=== PATIENT | male | born 1955 | race Caucasian/White ===

== ENCOUNTER 2018-02-26 14:22 | Inpatient (IN) | payer MEDICAID ==
[~2018-02-26] VITALS: Ht 182.9 cm; Wt 102.3 kg
[2018-02-26] VITALS (10 sets, daily range): BP systolic 103–155; BP diastolic 62–78
[~2018-02-26 14:22] MED LIST: ALBU8.5H8 IH; CEPH-571 PO; HYDR12.55 PO; LANTUS SQ; LEVA15HF4 INH; LISI40TA4 PO; METF500T PO
[2018-02-26] MEDS ORDERED: HYDROmorphone 1 mg/ml syringe IV ONE ×3 (14:35→16:05)
[2018-02-26] MEDS ORDERED: OMEP40CA37 PO (14:47)
[2018-02-26] MEDS ORDERED: HYDROmorphone 1 mg/ml syringe IM ONE (15:15)
[2018-02-26] MEDS ORDERED: levoFLOXACIN-Levaquin 750MG/D5 150 ML IV STA (16:22)
[2018-02-26] MEDS ORDERED: clindamycin-Cleocin 900mg/D5W 50 ML IV ONE (16:25)
[2018-02-26] MEDS ORDERED: normal saline 1000ml 1,000 ML IV ONE (16:45)
[2018-02-26] MEDS ORDERED: LORazepam 2 mg/ml vial IV ONE ×2 (17:00→19:55)
[2018-02-26] MEDS ORDERED: rabies immune globulin/PF 150 unit/ml inj IMVAC STA (17:39)
[2018-02-26] MEDS ORDERED: haloperidol 5mg tablet PO PRN ×2 (17:40)
[2018-02-26] MEDS ORDERED: dextrose 50%-water 50ml dispensing syringe IV PRN ×3 (17:40)
[2018-02-26] MEDS ORDERED: LORazepam 2 mg/ml vial IV PRN ×2 (17:40)
[2018-02-26] MEDS ORDERED: mag hydrox/Alum hydrox/simeth 30ml oral suspension PO PRN (17:40)
[2018-02-26] MEDS ORDERED: ipratropium/albuterol 3ml nebule NEB PRN (17:40)
[2018-02-26] MEDS ORDERED: rabies vaccine (PCEC)/PF 2.5 unit kit IMVAC ONE (17:40)
[2018-02-26] MEDS ORDERED: potassium Cl 40MEQ/NS 500ml 500 ML IV PRN ×2 (17:40)
[2018-02-26] MEDS ORDERED: thiamine inj. 100 MG in normal saline 100ml IV soln 100 ML IV ONE (17:40)
[2018-02-26] MEDS ORDERED: magnesium hydroxide 30ml (MOM) UD suspension PO PRN (17:40)
[2018-02-26] MEDS ORDERED: ondansetron/PF 4mg/2ml inj IV PRN ×3 (17:40→21:30)
[2018-02-26] MEDS ORDERED: haloperidol lactate 5mg/ml inj IM PRN ×2 (17:40)
[2018-02-26] MEDS ORDERED: magnesium 4gm in 100ml NS 100 ML IV PRN (17:40)
[2018-02-26] MEDS ORDERED: insulin Lispro (HumaLOG) vial - multi-dose SQ SCH (17:40)
[2018-02-26] MEDS ORDERED: dextrose ORAL solution 15 GM/59 ML bottle PO PRN ×2 (17:40)
[2018-02-26] MEDS ORDERED: magnesium 1gm/100ml D5W IVPB 50 ML IV PRN (17:40)
[2018-02-26] MEDS ORDERED: acetaminophen 325mg tablet PO PRN (17:40)
[2018-02-26] MEDS ORDERED: glucagon, human recombinant 1mg kit SUBCUT PRN (17:40)
[2018-02-26] MEDS ORDERED: thiamine 100mg/ml 2ml inj. IV ONE (17:40)
[2018-02-26] MEDS ORDERED: diphenhydrAMINE 50 mg/ml inj IV PRN (17:40)
[2018-02-26] MEDS ORDERED: MESSAGE TO PHARMACY PO ONE (17:40)
[2018-02-26] MEDS ORDERED: morphine 4 MG/ML inj SYRINge IV PRN ×4 (17:40→19:15)
[2018-02-26] MEDS ORDERED: potassium Cl 20 mEq SR tablet PO PRN ×2 (17:40)
[2018-02-26 17:52] LABS: INR 1.2 INR
[2018-02-26] MEDS: normal saline 1000ml 1,000 ML IV SCH (18:17)
[2018-02-26 18:19] LABS: BASOPHILS % (AUTO) 0.3 % (0-1); EOSINOPHILS # (AUTO) 0.6 X10'3 (0-0.9); EOSINOPHILS % (AUTO) 8.4 % (0-6); HEMATOCRIT 37.8 % (42.0-52.0); HEMOGLOBIN 13.2 g/dl (14.0-17.9); LYMPHOCYTES # (AUTO) 2.1 X10'3 (1.1-4.8); LYMPHOCYTES % (AUTO) 28.1 % (21-51); MEAN CORPUSCULAR HEMOGLOBIN 31.2 PG (27.0-31.0); MEAN CORPUSCULAR HGB CONC 34.9 % (33.0-36.5); MEAN CORPUSCULAR VOLUME 89.3 FL (78-98); MEAN PLATELET VOLUME 8.2 FL (7.4-10.4); MONOCYTES # (AUTO) 0.9 X10'3 (0-0.9); NEUTROPHILS # (AUTO) 3.8 X10'3 (1.8-7.7); NEUTROPHILS % (AUTO) 51.2 % (42-75); PLATELET COUNT 208 X10'3 (140-440); RED BLOOD COUNT 4.24 X10'6 (4.70-6.10); RED CELL DISTRIBUTION WIDTH 13.9 % (11.5-14.5); WHITE BLOOD COUNT 7.4 X10'3 (4.5-11.0)
[2018-02-26 18:34] LABS: ALANINE AMINOTRANSFERASE 37 U/L (12-78); ALBUMIN 3.1 G/DL (3.4-5.0); ALBUMIN/GLOBULIN RATIO 0.8 (1.1-1.5); ALKALINE PHOSPHATASE 79 IU/L (46-116); ANION GAP 5 (8-16); ASPARTATE AMINO TRANSFERASE 27 U/L (10-37); BILIRUBIN,TOTAL 0.7 MG/DL (0.1-1.0); BLOOD UREA NITROGEN 16 MG/DL (7-18); BUN/CREATININE RATIO 18.4 (5.4-32.0); CALCIUM 8.6 MG/DL (8.5-10.1); CHLORIDE 107 MMOL/L (99-107); CREATININE 0.87 MG/DL (0.60-1.10); GLUCOSE 103 MG/DL (70-104); POTASSIUM 3.7 MMOL/L (3.5-5.1); SODIUM 139 MMOL/L (135-145); TOTAL CARBON DIOXIDE 27.3 MMOL/L (24-32); TOTAL PROTEIN 6.8 G/DL (6.4-8.2); eGFR 89 ML/MIN
[2018-02-26 19:05] LABS: URINE AMPHETAMINE SCREEN POSITIVE (Neg); URINE BARBITUATE SCREEN NEGATIVE (Neg); URINE BENZODIAZEPINES SCREEN NEGATIVE (Neg); URINE CANNABINOID SCREEN POSITIVE (Neg); URINE COCAINE SCREEN NEGATIVE (Neg); URINE METHADONE SCREEN NEGATIVE (Neg); URINE OPIATE SCREEN POSITIVE (Neg); URINE PHENCYCLIDINE SCREEN NEGATIVE (Neg)
[2018-02-26] MEDS ORDERED: ringers solution, lacted 1,000 ML IV SCH (19:14)
[2018-02-26] MEDS ORDERED: meperidine/PF 25mg/ml syringe IV PRN ×3 (19:15)
[2018-02-26] MEDS ORDERED: proCHLORperazine 10 MG/2 ml inj IV PRN (19:15)
[2018-02-26] MEDS: cefepime 2g/NS 100ml ADVANTAGE 100 ML IV SCH (20:00)
[2018-02-26] MEDS ORDERED: fentaNYL /PF 50mcg/ml 5ml ampule ONE (20:36)
[2018-02-26] MEDS ORDERED: midazolam 2 mg/2 ml injection ONE (20:36)
[2018-02-26] MEDS ORDERED: sevoflurane 250ml liquid IH ONE (20:37)
[2018-02-26] MEDS ORDERED: LIDOcaine 2% (20mg/ml) 5ml vial ONE (20:42)
[2018-02-26] MEDS ORDERED: propofol inj 20 ML IV ONE (20:42)
[2018-02-26] MEDS: insulin glargine (Lantus) pen - multi-dose SQ SCH (21:00)
[2018-02-26] MEDS ORDERED: sugammadex 200mg/2ml injection IV ONE (21:20)
[2018-02-26] MEDS ORDERED: HYDROcodone/acetaminophen 10/325mg tab PO PRN (21:30)
[2018-02-26] MEDS ORDERED: flumazenil 0.1 mg/ml inj. IV ONE (21:42)
[2018-02-26] MEDS: heparin, porcine 5000 units/ml vial SQ SCH (23:40)
[2018-02-27] VITALS (8 sets, daily range): BP systolic 124–144; BP diastolic 62–84
[2018-02-27] MEDS: normal saline 1000ml 1,000 ML IV SCH ×2 (03:14→13:40)
[2018-02-27 05:15] LABS: BASOPHILS % (AUTO) 0.5 % (0-1); EOSINOPHILS # (AUTO) 0.5 X10'3 (0-0.9); EOSINOPHILS % (AUTO) 6.4 % (0-6); HEMATOCRIT 36.5 % (42.0-52.0); HEMOGLOBIN 12.4 g/dl (14.0-17.9); LYMPHOCYTES # (AUTO) 1.5 X10'3 (1.1-4.8); LYMPHOCYTES % (AUTO) 19.1 % (21-51); MEAN CORPUSCULAR HEMOGLOBIN 30.7 PG (27.0-31.0); MEAN CORPUSCULAR HGB CONC 34.1 % (33.0-36.5); MEAN PLATELET VOLUME 8.5 FL (7.4-10.4); MONOCYTES % (AUTO) 12.3 % (2-12); NEUTROPHILS % (AUTO) 61.7 % (42-75); PLATELET COUNT 209 X10'3 (140-440); RED BLOOD COUNT 4.05 X10'6 (4.70-6.10); RED CELL DISTRIBUTION WIDTH 14.2 % (11.5-14.5)
[2018-02-27 05:38] LABS: ALANINE AMINOTRANSFERASE 29 U/L (12-78); ALBUMIN 2.7 G/DL (3.4-5.0); ALBUMIN/GLOBULIN RATIO 0.8 (1.1-1.5); ALKALINE PHOSPHATASE 78 IU/L (46-116); ANION GAP 7 (8-16); ASPARTATE AMINO TRANSFERASE 21 U/L (10-37); BILIRUBIN,TOTAL 0.7 MG/DL (0.1-1.0); BLOOD UREA NITROGEN 12 MG/DL (7-18); BUN/CREATININE RATIO 14.3 (5.4-32.0); CALCIUM 7.9 MG/DL (8.5-10.1); CHLORIDE 105 MMOL/L (99-107); CHOL/HDL RATIO 2.5 (0.00-4.99); CHOLESTEROL 98 MG/DL (0-200); CREATININE 0.84 MG/DL (0.60-1.10); GLUCOSE 100 MG/DL (70-104); HDL CHOLESTEROL 40 MG/DL (35-60); LDL CHOLESTEROL 51 MG/DL (50-100); MAGNESIUM 1.6 MG/DL (1.5-2.4); POTASSIUM 3.7 MMOL/L (3.5-5.1); SODIUM 139 MMOL/L (135-145); TOTAL CARBON DIOXIDE 27.1 MMOL/L (24-32); TOTAL PROTEIN 6.1 G/DL (6.4-8.2); TRIGLYCERIDES 54 MG/DL (20-135); eGFR > 90 ML/MIN
[2018-02-27] MEDS: nicotine 21mg patch - 24 hr TD SCH (08:00)
[2018-02-27] MEDS ORDERED: folic acid inj. 2 MG, thiamine inj. 100 MG, MVI, adult No.4 with vit. K 10 ML in dextro... IV SCH ×4 (08:00)
[2018-02-27] MEDS: K and/or MAG REPLACEMENT MC SCH (08:00)
[2018-02-27] MEDS: lisinopril 10 MG tablet PO SCH (08:08)
[2018-02-27] MEDS: cefepime 2g/NS 100ml ADVANTAGE 100 ML IV SCH (08:08)
[2018-02-27] MEDS: heparin, porcine 5000 units/ml vial SQ SCH ×2 (08:22→16:00)
[2018-02-27] MEDS: metroNIDAZOLE 500mg tablet PO SCH ×2 (16:00→16:08)
[2018-02-27] MEDS: levoFLOXACIN 750MG TABLET PO SCH (16:08)
[2018-02-27] MEDS: insulin glargine (Lantus) pen - multi-dose SQ SCH (21:00)
[2018-02-28] VITALS: BP 128/72
[2018-02-28] MEDS: metroNIDAZOLE 500mg tablet PO SCH ×2 (00:11→07:56)
[2018-02-28 05:28] LABS: ALANINE AMINOTRANSFERASE 31 U/L (12-78); ALBUMIN 2.8 G/DL (3.4-5.0); ALBUMIN/GLOBULIN RATIO 0.8 (1.1-1.5); ALKALINE PHOSPHATASE 87 IU/L (46-116); ANION GAP 6 (8-16); ASPARTATE AMINO TRANSFERASE 25 U/L (10-37); BILIRUBIN,TOTAL 0.6 MG/DL (0.1-1.0); BLOOD UREA NITROGEN 12 MG/DL (7-18); BUN/CREATININE RATIO 12.4 (5.4-32.0); CALCIUM 8.2 MG/DL (8.5-10.1); CHLORIDE 105 MMOL/L (99-107); CREATININE 0.97 MG/DL (0.60-1.10); GLUCOSE 111 MG/DL (70-104); MAGNESIUM 1.9 MG/DL (1.5-2.4); PHOSPHORUS 2.9 MG/DL (2.3-4.5); SODIUM 138 MMOL/L (135-145); TOTAL CARBON DIOXIDE 27.1 MMOL/L (24-32); TOTAL PROTEIN 6.5 G/DL (6.4-8.2); eGFR 78 ML/MIN
[2018-02-28 05:43] LABS: HEMATOCRIT 38.5 % (42.0-52.0); HEMOGLOBIN 13.3 g/dl (14.0-17.9); MEAN CORPUSCULAR HEMOGLOBIN 31.1 PG (27.0-31.0); MEAN CORPUSCULAR HGB CONC 34.6 % (33.0-36.5); MEAN CORPUSCULAR VOLUME 89.7 FL (78-98); MEAN PLATELET VOLUME 8.9 FL (7.4-10.4); PLATELET COUNT 205 X10'3 (140-440); RED BLOOD COUNT 4.29 X10'6 (4.70-6.10); RED CELL DISTRIBUTION WIDTH 13.8 % (11.5-14.5); WHITE BLOOD COUNT 8.5 X10'3 (4.5-11.0)
[2018-02-28 06:08] LABS: TOTAL CELLS COUNTED 100
[2018-02-28 06:09] LABS: PLATELET ESTIMATE NORMAL
[2018-02-28 07:00] VITALS: BP 142/76
[2018-02-28] MEDS: lisinopril 10 MG tablet PO SCH (07:55)
[2018-02-28] MEDS: nicotine 21mg patch - 24 hr TD SCH (07:57)
[2018-02-28] MEDS: heparin, porcine 5000 units/ml vial SQ SCH ×2 (07:57)
[2018-02-28] MEDS ORDERED: folic acid 1mg tablet PO SCH (08:00)
[2018-02-28] MEDS: K and/or MAG REPLACEMENT MC SCH (08:00)
[2018-02-28] MEDS ORDERED: thiamine 100mg tablet PO SCH (08:00)
[2018-02-28] MEDS ORDERED: multivitamins, therapeutics tablet PO SCH (08:00)
[2018-02-28] MEDS ORDERED: LEVO750T46 PO (09:58)
[2018-02-28] MEDS ORDERED: METR500T4 PO (09:58)
[2018-02-28] MEDS ORDERED: HYDR-3972 PO (10:17)
[2018-02-28 11:00] VITALS: BP 123/70
[2018-02-28] MEDS: levoFLOXACIN 750MG TABLET PO SCH (12:15)
[2018-02-28] MEDS ORDERED: LORazepam 1 MG tablet PO PRN ×2 (17:40)
[2018-02-28] MEDS ORDERED: LORazepam 2 mg/ml vial IV PRN ×2 (17:40)
[2018-02-28] MEDS ORDERED: lactobacillus rhamnosus 10,000 MMU CELLS/CAPSULE PO SCH (20:00)
[2018-03-02] MEDS ORDERED: LORazepam 1 MG tablet PO PRN ×2 (17:40)
[2018-03-02] MEDS ORDERED: LORazepam 2 mg/ml vial IV PRN ×2 (17:40)
== END 2018-02-28 13:35 | disposition home health service (06) | DRG 364 ==
LOC: ER 14:22 → ED HOLD 17:40 → EDBEDREQ 19:20 → SUR 3N 22:45
PROVIDERS: ADMIT Family Medicine; ATTEND Internal Medicine
PROC: 0JDN0ZZ Extraction of Right Lower Leg Subcutaneous Tissue and Fascia, Open Approach (ICD-10-PCS; principal; 2018-02-26 20:37)
DX: S81.851A Open bite, right lower leg, initial encounter (principal); I10 Essential (primary) hypertension; L03.116 Cellulitis of left lower limb; E11.9 Type 2 diabetes mellitus without complications; F12.90 Cannabis use, unspecified, uncomplicated; G47.33 Obstructive sleep apnea (adult) (pediatric); E66.9 Obesity, unspecified; J44.9 Chronic obstructive pulmonary disease, unspecified; K21.9 Gastro-esophageal reflux disease without esophagitis; F17.210 Nicotine dependence, cigarettes, uncomplicated; W54.0XXA Bitten by dog, initial encounter; Z79.4 Long term (current) use of insulin; Z79.899 Other long term (current) drug therapy; Z82.49 Family history of ischemic heart disease and other diseases of the circulatory system; Z23 Encounter for immunization; Z68.30 Body mass index [BMI] 30.0-30.9, adult; Y93.89 Activity, other specified; Y92.89 Other specified places as the place of occurrence of the external cause; Y99.8 Other external cause status; Z88.0 Allergy status to penicillin; Z88.5 Allergy status to narcotic agent; Z91.19 Patient's noncompliance with other medical treatment and regimen
CPT/HCPCS: 36415; 73590; 73700; 80053; 80061; 80305; 82948; 83036; 83735; 84100; 85025; 85610; 86885; 86900; 86901; 87070; 90375; 90675; 94760; 96365; 96372; 96375; 96376; 99285; A4353; A4649; A6212; A6446; A6449; A7000; C9399; J0692; J1170; J1644; J1815; J1956; J2001; J2060; J2175; J2250; J2270; J2704; J3010; J3411; J3490; J7030; J7060; J7120

== ENCOUNTER 2018-03-20 09:00 | Outpatient (CLI) | payer MEDICAID ==
[~2018-03-20 09:00] MED LIST changes: -ALBU8.5H8 IH; -CEPH-571 PO; +HYDR-3972 PO; -HYDR12.55 PO; -LANTUS SQ; -LEVA15HF4 INH; +LEVO750T46 PO; -METF500T PO; +METR500T4 PO; +OMEP40CA37 PO
[2018-03-20] MEDS ORDERED: LIDOcaine 2% 5ml jelly ONE (10:16)
== END 2018-03-20 11:16 | disposition home or self-care (01) ==
LOC: EDSTATUS 09:00 → WOUND CARE 09:00
PROVIDERS: ATTEND Surgery
DX: T81.89XD Other complications of procedures, not elsewhere classified, subsequent encounter (principal); E11.622 Type 2 diabetes mellitus with other skin ulcer; L97.212 Non-pressure chronic ulcer of right calf with fat layer exposed; J44.9 Chronic obstructive pulmonary disease, unspecified; I10 Essential (primary) hypertension; K21.9 Gastro-esophageal reflux disease without esophagitis; E66.9 Obesity, unspecified; G47.33 Obstructive sleep apnea (adult) (pediatric); F12.90 Cannabis use, unspecified, uncomplicated; F17.210 Nicotine dependence, cigarettes, uncomplicated; Z68.30 Body mass index [BMI] 30.0-30.9, adult; Z79.4 Long term (current) use of insulin; Z79.899 Other long term (current) drug therapy; Z79.84 Long term (current) use of oral hypoglycemic drugs; Y83.8 Other surgical procedures as the cause of abnormal reaction of the patient, or of later complication, without mention of misadventure at the time of the procedure
CPT/HCPCS: 97605

== ENCOUNTER 2018-03-29 10:02 | Day surgery (SDC) | payer MEDICAID ==
[~2018-03-29 10:02] MED LIST changes: -LEVO750T46 PO; -METR500T4 PO
[2018-03-29] MEDS ORDERED: LIDOcaine 2% 5ml jelly ONE (11:15)
== END 2018-03-29 12:19 | disposition home or self-care (01) ==
LOC: WOUND CARE 10:02
PROVIDERS: ATTEND Surgery
DX: T81.89XD Other complications of procedures, not elsewhere classified, subsequent encounter (principal); E11.622 Type 2 diabetes mellitus with other skin ulcer; L97.212 Non-pressure chronic ulcer of right calf with fat layer exposed; J44.9 Chronic obstructive pulmonary disease, unspecified; I10 Essential (primary) hypertension; K21.9 Gastro-esophageal reflux disease without esophagitis; E66.9 Obesity, unspecified; G47.33 Obstructive sleep apnea (adult) (pediatric); F12.90 Cannabis use, unspecified, uncomplicated; F17.210 Nicotine dependence, cigarettes, uncomplicated; Z68.30 Body mass index [BMI] 30.0-30.9, adult; Z79.4 Long term (current) use of insulin; Z79.899 Other long term (current) drug therapy; Z79.84 Long term (current) use of oral hypoglycemic drugs; Y83.8 Other surgical procedures as the cause of abnormal reaction of the patient, or of later complication, without mention of misadventure at the time of the procedure
CPT/HCPCS: 15271; 15272; A6223; Q4131; A4456

== ENCOUNTER 2018-04-05 09:17 | Day surgery (SDC) | payer MEDICAID ==
[2018-04-05] MEDS ORDERED: LIDOcaine 2% 5ml jelly ONE (09:55)
== END 2018-04-05 11:30 | disposition home or self-care (01) ==
LOC: WOUND CARE 09:17
PROVIDERS: ATTEND Surgery
DX: E11.40 Type 2 diabetes mellitus with diabetic neuropathy, unspecified (principal); L97.514 Non-pressure chronic ulcer of other part of right foot with necrosis of bone; E11.621 Type 2 diabetes mellitus with foot ulcer; E11.65 Type 2 diabetes mellitus with hyperglycemia
CPT/HCPCS: 15271; A6222; Q4131; A6250

== ENCOUNTER 2018-04-09 09:56 | Outpatient (CLI) | payer MEDICAID | END 2018-04-09 11:31 | disposition home or self-care (01) | LOC: WOUND CARE 09:56 → EDSTATUS 10:00 → WOUND CARE 11:31 | PROVIDERS: ATTEND Surgery | DX: T81.89XD Other complications of procedures, not elsewhere classified, subsequent encounter (principal); E11.622 Type 2 diabetes mellitus with other skin ulcer; L97.212 Non-pressure chronic ulcer of right calf with fat layer exposed; E11.65 Type 2 diabetes mellitus with hyperglycemia; E11.40 Type 2 diabetes mellitus with diabetic neuropathy, unspecified; J44.9 Chronic obstructive pulmonary disease, unspecified; I10 Essential (primary) hypertension; K21.9 Gastro-esophageal reflux disease without esophagitis; E66.9 Obesity, unspecified; G47.33 Obstructive sleep apnea (adult) (pediatric); F12.90 Cannabis use, unspecified, uncomplicated; Z68.30 Body mass index [BMI] 30.0-30.9, adult; Z79.4 Long term (current) use of insulin; Z79.899 Other long term (current) drug therapy; Z79.84 Long term (current) use of oral hypoglycemic drugs; Y83.8 Other surgical procedures as the cause of abnormal reaction of the patient, or of later complication, without mention of misadventure at the time of the procedure | CPT/HCPCS: 97605; A6222 ==

== ENCOUNTER 2018-04-13 10:14 | Day surgery (SDC) | payer MEDICAID ==
[2018-04-13] MEDS ORDERED: LIDOcaine/PRILOcaine 5gm cream TP ONE (11:30)
== END 2018-04-13 12:10 | disposition home or self-care (01) ==
LOC: WOUND CARE 10:14
PROVIDERS: ATTEND Surgery
DX: T81.89XD Other complications of procedures, not elsewhere classified, subsequent encounter (principal); E11.622 Type 2 diabetes mellitus with other skin ulcer; L97.212 Non-pressure chronic ulcer of right calf with fat layer exposed; J44.9 Chronic obstructive pulmonary disease, unspecified; I10 Essential (primary) hypertension; K21.9 Gastro-esophageal reflux disease without esophagitis; E66.9 Obesity, unspecified; G47.33 Obstructive sleep apnea (adult) (pediatric); F12.90 Cannabis use, unspecified, uncomplicated; F17.210 Nicotine dependence, cigarettes, uncomplicated; Z68.30 Body mass index [BMI] 30.0-30.9, adult; Z79.4 Long term (current) use of insulin; Z79.899 Other long term (current) drug therapy; Z79.84 Long term (current) use of oral hypoglycemic drugs; Y83.8 Other surgical procedures as the cause of abnormal reaction of the patient, or of later complication, without mention of misadventure at the time of the procedure
CPT/HCPCS: 15271; Q4131

== ENCOUNTER 2018-04-19 09:56 | Day surgery (SDC) | payer MEDICAID ==
[2018-04-19] MEDS ORDERED: LIDOcaine/PRILOcaine 5gm cream TP ONE (11:21)
== END 2018-04-19 11:56 | disposition home or self-care (01) ==
LOC: WOUND CARE 09:56
PROVIDERS: ATTEND Surgery
DX: T81.89XD Other complications of procedures, not elsewhere classified, subsequent encounter (principal); E11.622 Type 2 diabetes mellitus with other skin ulcer; L97.212 Non-pressure chronic ulcer of right calf with fat layer exposed; J44.9 Chronic obstructive pulmonary disease, unspecified; I10 Essential (primary) hypertension; K21.9 Gastro-esophageal reflux disease without esophagitis; E66.9 Obesity, unspecified; G47.33 Obstructive sleep apnea (adult) (pediatric); F12.90 Cannabis use, unspecified, uncomplicated; F17.210 Nicotine dependence, cigarettes, uncomplicated; Z68.30 Body mass index [BMI] 30.0-30.9, adult; Z79.4 Long term (current) use of insulin; Z79.899 Other long term (current) drug therapy; Z79.84 Long term (current) use of oral hypoglycemic drugs; Y83.8 Other surgical procedures as the cause of abnormal reaction of the patient, or of later complication, without mention of misadventure at the time of the procedure
CPT/HCPCS: 15271; A6196; A6222; A6446; Q4131; A6250

== ENCOUNTER 2018-05-03 10:09 | Day surgery (SDC) | payer MEDICAID ==
[2018-05-03] MEDS ORDERED: LIDOcaine/PRILOcaine 5gm cream TP ONE (11:50)
== END 2018-05-03 12:24 | disposition home or self-care (01) ==
LOC: WOUND CARE 10:09
PROVIDERS: ATTEND Surgery
DX: T81.89XD Other complications of procedures, not elsewhere classified, subsequent encounter (principal); E11.622 Type 2 diabetes mellitus with other skin ulcer; L97.212 Non-pressure chronic ulcer of right calf with fat layer exposed; J44.9 Chronic obstructive pulmonary disease, unspecified; I10 Essential (primary) hypertension; K21.9 Gastro-esophageal reflux disease without esophagitis; E66.9 Obesity, unspecified; G47.33 Obstructive sleep apnea (adult) (pediatric); F12.90 Cannabis use, unspecified, uncomplicated; F17.210 Nicotine dependence, cigarettes, uncomplicated; Z68.30 Body mass index [BMI] 30.0-30.9, adult; Z79.4 Long term (current) use of insulin; Z79.899 Other long term (current) drug therapy; Z79.84 Long term (current) use of oral hypoglycemic drugs; Y83.8 Other surgical procedures as the cause of abnormal reaction of the patient, or of later complication, without mention of misadventure at the time of the procedure
CPT/HCPCS: 15271; A6209; A6222; A6446; Q4131; A6250

== ENCOUNTER 2018-05-10 09:55 | Outpatient (CLI) | payer MEDICAID ==
[2018-05-10] MEDS ORDERED: LIDOcaine/PRILOcaine 5gm cream TP ONE (11:35)
== END 2018-05-10 12:40 | disposition home or self-care (01) ==
LOC: WOUND CARE 09:55 → EDSTATUS 10:00 → WOUND CARE 12:40
PROVIDERS: ATTEND Surgery
DX: T81.89XD Other complications of procedures, not elsewhere classified, subsequent encounter (principal); E11.622 Type 2 diabetes mellitus with other skin ulcer; L97.212 Non-pressure chronic ulcer of right calf with fat layer exposed; J44.9 Chronic obstructive pulmonary disease, unspecified; I10 Essential (primary) hypertension; K21.9 Gastro-esophageal reflux disease without esophagitis; E66.9 Obesity, unspecified; G47.33 Obstructive sleep apnea (adult) (pediatric); F12.90 Cannabis use, unspecified, uncomplicated; F17.210 Nicotine dependence, cigarettes, uncomplicated; Z68.30 Body mass index [BMI] 30.0-30.9, adult; Z79.4 Long term (current) use of insulin; Z79.899 Other long term (current) drug therapy; Z79.84 Long term (current) use of oral hypoglycemic drugs; Y83.8 Other surgical procedures as the cause of abnormal reaction of the patient, or of later complication, without mention of misadventure at the time of the procedure
CPT/HCPCS: 15271; A6209; A6222; A6446; Q4131; A6250

== ENCOUNTER 2018-05-17 10:10 | Outpatient (CLI) | payer MEDICAID ==
[2018-05-17] MEDS ORDERED: LIDOcaine/PRILOcaine 5gm cream TP ONE (11:23)
== END 2018-05-17 12:29 | disposition home or self-care (01) ==
LOC: WOUND CARE 10:10
PROVIDERS: ATTEND Surgery
DX: T81.89XD Other complications of procedures, not elsewhere classified, subsequent encounter (principal); E11.622 Type 2 diabetes mellitus with other skin ulcer; L97.212 Non-pressure chronic ulcer of right calf with fat layer exposed; J44.9 Chronic obstructive pulmonary disease, unspecified; I10 Essential (primary) hypertension; K21.9 Gastro-esophageal reflux disease without esophagitis; E66.9 Obesity, unspecified; G47.33 Obstructive sleep apnea (adult) (pediatric); F12.90 Cannabis use, unspecified, uncomplicated; F17.210 Nicotine dependence, cigarettes, uncomplicated; Z68.30 Body mass index [BMI] 30.0-30.9, adult; Z79.4 Long term (current) use of insulin; Z79.899 Other long term (current) drug therapy; Z79.84 Long term (current) use of oral hypoglycemic drugs; Y83.8 Other surgical procedures as the cause of abnormal reaction of the patient, or of later complication, without mention of misadventure at the time of the procedure
CPT/HCPCS: 99215; A6021; A6206; A6446

== ENCOUNTER 2018-05-24 09:54 | Day surgery (SDC) | payer MEDICAID ==
[2018-05-24] MEDS ORDERED: LIDOcaine/PRILOcaine 5gm cream TP ONE (11:20)
== END 2018-05-24 12:11 | disposition home or self-care (01) ==
LOC: WOUND CARE 09:54
PROVIDERS: ATTEND Surgery
DX: S80.871A Other superficial bite, right lower leg, initial encounter (principal); J44.9 Chronic obstructive pulmonary disease, unspecified; I10 Essential (primary) hypertension; K21.9 Gastro-esophageal reflux disease without esophagitis; E66.9 Obesity, unspecified; E11.40 Type 2 diabetes mellitus with diabetic neuropathy, unspecified; E11.65 Type 2 diabetes mellitus with hyperglycemia; G47.33 Obstructive sleep apnea (adult) (pediatric); F12.90 Cannabis use, unspecified, uncomplicated; F17.210 Nicotine dependence, cigarettes, uncomplicated; Z68.30 Body mass index [BMI] 30.0-30.9, adult; Z79.4 Long term (current) use of insulin; Z79.899 Other long term (current) drug therapy; Z79.84 Long term (current) use of oral hypoglycemic drugs; W54.0XXA Bitten by dog, initial encounter; Y93.89 Activity, other specified; Y92.89 Other specified places as the place of occurrence of the external cause; Y99.8 Other external cause status
CPT/HCPCS: 17250; A6021; A6206; A6446

== ENCOUNTER 2018-06-11 10:08 | Outpatient (CLI) | payer MEDICAID | END 2018-06-11 12:27 | disposition home or self-care (01) | LOC: WOUND CARE 10:08 | PROVIDERS: ATTEND Surgery | DX: T81.89XD Other complications of procedures, not elsewhere classified, subsequent encounter (principal); L97.212 Non-pressure chronic ulcer of right calf with fat layer exposed; J44.9 Chronic obstructive pulmonary disease, unspecified; I10 Essential (primary) hypertension; K21.9 Gastro-esophageal reflux disease without esophagitis; E66.9 Obesity, unspecified; E11.40 Type 2 diabetes mellitus with diabetic neuropathy, unspecified; E11.65 Type 2 diabetes mellitus with hyperglycemia; G47.33 Obstructive sleep apnea (adult) (pediatric); F12.90 Cannabis use, unspecified, uncomplicated; F17.210 Nicotine dependence, cigarettes, uncomplicated; Z68.30 Body mass index [BMI] 30.0-30.9, adult; Z79.4 Long term (current) use of insulin; Z79.899 Other long term (current) drug therapy; Z79.84 Long term (current) use of oral hypoglycemic drugs; Y83.8 Other surgical procedures as the cause of abnormal reaction of the patient, or of later complication, without mention of misadventure at the time of the procedure | CPT/HCPCS: 99214 ==

== ENCOUNTER 2018-08-21 08:06 | Emergency (ER) | payer MEDICAID ==
[~2018-08-21] VITALS: Ht 182.9 cm; Wt 113.3 kg
[2018-08-21 08:13] VITALS: BP 172/97
[2018-08-21] MEDS ORDERED: CIPR7.5D2 RIGHT EAR (08:31)
[2018-08-21] MEDS ORDERED: CEPH-571 PO (08:31)
== END 2018-08-21 09:06 | disposition home or self-care (01) ==
LOC: ER 08:07
DX: H66.91 Otitis media, unspecified, right ear (principal); H60.91 Unspecified otitis externa, right ear; J44.9 Chronic obstructive pulmonary disease, unspecified; E11.9 Type 2 diabetes mellitus without complications; Z88.0 Allergy status to penicillin; Z88.5 Allergy status to narcotic agent; Z79.2 Long term (current) use of antibiotics; Z79.899 Other long term (current) drug therapy
CPT/HCPCS: 99283

== ENCOUNTER 2020-12-17 20:11 | Emergency (ER) | payer MEDICARE, MEDICAID ==
[~2020-12-17] VITALS: Ht 182.9 cm; Wt 113.6 kg
[~2020-12-17 20:11] MED LIST changes: +CEPH-571 PO; +CIPR7.5D2 RIGHT EAR; +LISI40TA13 PO; -LISI40TA4 PO; +OMEP40CA13 PO; -OMEP40CA37 PO
[2020-12-17 20:28] VITALS: BP 165/79
[2020-12-17 21:18] LABS: BASOPHILS % (AUTO) 0.2 % (0-1); EOSINOPHILS # (AUTO) 0.1 X10'3 (0-0.9); EOSINOPHILS % (AUTO) 0.3 % (0-6); HEMATOCRIT 51.3 % (42.0-52.0); HEMOGLOBIN 17.3 g/dl (14.0-17.9); LYMPHOCYTES # (AUTO) 1.2 X10'3 (1.1-4.8); LYMPHOCYTES % (AUTO) 6.9 % (21-51); MEAN CORPUSCULAR HEMOGLOBIN 30.5 PG (27.0-31.0); MEAN CORPUSCULAR HGB CONC 33.8 g/dL (33.0-36.5); MEAN CORPUSCULAR VOLUME 90.2 FL (78-98); MEAN PLATELET VOLUME 9.6 FL (7.4-10.4); MONOCYTES # (AUTO) 2.8 X10'3 (0-0.9); MONOCYTES % (AUTO) 16.6 % (2-12); NEUTROPHILS # (AUTO) 12.9 X10'3 (1.8-7.7); PLATELET COUNT 205 X10'3 (140-440); RED BLOOD COUNT 5.68 X10'6 (4.70-6.10); RED CELL DISTRIBUTION WIDTH 14.4 % (11.5-14.5); WHITE BLOOD COUNT 16.9 X10'3 (4.5-11.0)
--- NOTE | 2020-12-17 22:44 | NUR ---
Attempt to contact patient using both phone numbers listed. His significant other's phone number is disconnected and message left requesting return phone call to his phone number.
[2020-12-17 22:53] LABS: TOTAL CELLS COUNTED 100
[2020-12-17 22:55] LABS: PLATELET ESTIMATE NORMAL
[2020-12-18] MEDS ORDERED: ASPI-12 PO (17:45)
[2020-12-18] MEDS ORDERED: ACET-1017 PO (17:45)
== END 2020-12-17 22:45 | disposition left against medical advice (07) ==
LOC: ER 20:11
DX: M79.605 Pain in left leg (principal); Z53.21 Procedure and treatment not carried out due to patient leaving prior to being seen by health care provider
CPT/HCPCS: 36415; 83605; 84145; 85007; 85025; 87040